=== PATIENT | male | born 1955 | race Caucasian/White ===

== ENCOUNTER 2021-10-12 17:21 | Emergency (ER) | payer MEDICARE, SELFPAY ==
--- NOTE | ~2021-10-12 | XR_ITS ---
EXAMINATION: XR chest 2V Exam Date/Time: 10/12/2021 17:46 CDT CLINICAL HISTORY: COUGH, CONGESTION X 2 WKS; former smoker, quit 2003 Comparison: None available. RESULT: Lines, tubes, and devices: None. Lungs and pleura: No focal consolidation. Hyperexpansion as can be seen with emphysema. Cardiomediastinal silhouette: Unremarkable cardiomediastinal silhouette. Other: No acute osseous or upper abdominal finding. IMPRESSION: No acute cardiopulmonary process Reviewed, dictated and finalized at location K.
[2021-10-12 17:27] VITALS: BP 140/79; PULSE 86; RESP 16; TEMP 36.8; O2SAT 97
--- NOTE | 2021-10-12 17:32 | ED.URI ---
HPI - URI/Sore Throat General Chief Complaint: Upper Respiratory Infection Stated Complaint: CHEST CONGESTION Time Seen by Provider: 10/12/21 17:32 Source: patient Mode of arrival: ambulatory Limitations: no limitations History of Present Illness HPI Narrative: 66-year-old male presents with complaint of chest congestion, coughing up constant phlegm for 4 weeks. States that he had similar symptoms in July, his PCP would not see him, so sent him to a respiratory clinic and was given an antibiotic. States that symptoms improved briefly. Does not think that his symptoms are allergy related. Does not like to take [id number]-cupgbxy medications if they are not needed. Denies shortness of breath. States it is just all this phlegm that I keep coughing up . Patient reports history of smoking for several years, also exposure to asbestos and chemicals at [employer] . Concerned that his job may have caught up with him and cause damage to his lungs. All systems reviewed and negative except as noted above. Related Data Home Medications Medication Instructions Recorded Confirmed warfarin [Jantoven] 10/12/21 Allergies Allergy/AdvReac Type Severity Reaction Status Date / Time Penicillins Allergy Mild Unverified 07/20/12 16:51 penicillin G Allergy Unknown Verified 07/19/13 08:30 vancomycin Allergy Unknown Verified 07/05/16 15:57 Review of Systems Review of Systems: CONSTITUTIONAL: Denies fever, chills, or sweats. EYES: Denies visual changes, redness, or discharge. ENT: Denies rhinorrhea, congestion, sore throat, or otalgia. CARDIOVASCULAR: Denies chest pain, palpitations, or edema. RESPIRATORY: Reports cough and chest congestion/phlegm.denies dyspnea. GASTROINTESTINAL: Denies abdominal pain, nausea, vomiting, or diarrhea. GENITOURINARY: Denies dysuria or hematuria. SKIN: Denies rash or itching. MUSCULOSKELETAL: Denies back pain, joint pain, or myalgia. NEUROLOGIC: Denies headache, numbness, or weakness. PSYCHIATRIC: Denies anxiety or depression. All other systems reviewed are negative, except as documented in HPI. [facility] Social History Social History Smoking status: Former smoker Smoking end date: 07/03/02 Alcohol intake: current Comments At time of signature, agree with nursing past medical, surgical, social and family history. There is no relevant family history pertinent to the presenting complaint. Exam Narrative: GENERAL: This is a well-nourished, well-developed patient, in no apparent distress. HEAD: normocephalic, atraumatic. EYES: PERRL. Sclera clear/white. Vision is grossly intact. EARS: External ears normal NOSE: External nose normal THROAT: Mucous membranes moist, posterior pharynx no erythema but a clear postnasal drainage is noted. NECK: Neck supple, non-tender without lymphadenopathy, masses or thyromegaly. CARDIOVASCULAR: Regular rate and rhythm without murmurs, gallops, or rubs. RESPIRATORY: Lung sounds decreased throughout all lung bowden.. Breath sounds equal bilaterally. No wheezes, rales, or rhonchi. SKIN: warm, Dry, intact with no suspicious lesions or rash, good texture and turgor. NEURO: awake, alert, and oriented to person, place and time. There were no obvious focal neurologic abnormalities. EXTREMITIES: Normal range of motion to all extremities. Course Course Level of Care: Express Care Visit Vital Signs Vital signs: Vital Signs Temperature 36.8 C 10/12/21 17:27 Pulse Rate 86 10/12/21 17:27 Respiratory Rate 16 10/12/21 17:27 Blood Pressure 140/79 10/12/21 17:27 Pulse Oximetry 97 10/12/21 17:27 Temperature 36.8 C 10/12/21 17:35 Pulse Rate 86 10/12/21 17:35 Respiratory Rate 16 10/12/21 17:35 Blood Pressure 140/79 10/12/21 17:35 Pulse Oximetry 97 10/12/21 17:35 Reviewed MDM - URI/Sore Throat MDM Narrative Medical decision making narrative: Discussed x-ray results with patient. Educated patient on COPD/emphysema. Recommend ginger
[2021-10-12 17:35] VITALS: BP 140/79; PULSE 86; RESP 16; TEMP 36.8; O2SAT 97
== END 2021-10-12 18:23 | disposition home or self-care (01) ==
PROVIDERS: Emergency Provider Nurse Practitioner Family
DX: J43.9 Emphysema, unspecified (principal); Z87.891 Personal history of nicotine dependence; D75.9 Disease of blood and blood-forming organs, unspecified
CPT/HCPCS: 71046; 99203; G0463